=== PATIENT | male | born 1960 | race Two or more races ===

== ENCOUNTER 2017-09-17 08:05 | Day surgery (SDC) | payer OTHER ==
[2017-09-17] MEDS ORDERED: LIDOCAINE 0.5% HCL 50 ML VIAL ONE (08:25)
[2017-09-17] MEDS ORDERED: EPINEPHRINE (1:1000) MDV 30 MG/30ML VIAL ONE (08:25)
[2017-09-17] MEDS ORDERED: CEFAZOLIN SODIUM/DEXTROSE,ISO 50 ML IV ONE (09:13)
[2017-09-17] MEDS ORDERED: MIDAZOLAM HCL 2 MG/2ML VIAL ONE (09:51)
[2017-09-17] MEDS ORDERED: FENTANYL PF 250MCG/5ML AMPUL ONE (09:51)
[2017-09-17] MEDS ORDERED: ROCURONIUM BROMIDE 50 MG/5 ML ONE (09:58)
[2017-09-17] MEDS ORDERED: HYDROMORPHONE INJ 2 MG/ML DISP.SYRIN ONE (11:18)
== END 2017-09-17 13:05 | disposition home or self-care (01) ==
LOC: DS 08:05
PROVIDERS: ATTEND Specialist
DX: M75.112 Incomplete rotator cuff tear or rupture of left shoulder, not specified as traumatic (principal); M19.012 Primary osteoarthritis, left shoulder; M75.52 Bursitis of left shoulder; M65.812 Other synovitis and tenosynovitis, left shoulder; M75.42 Impingement syndrome of left shoulder; J44.9 Chronic obstructive pulmonary disease, unspecified; F17.200 Nicotine dependence, unspecified, uncomplicated; I50.9 Heart failure, unspecified; I11.0 Hypertensive heart disease with heart failure; Z98.890 Other specified postprocedural states; Z79.899 Other long term (current) drug therapy
CPT/HCPCS: 23412; 29824; 29826; 29828; 88304; 88311; A4217; A4565; A6253; J0171; J0690; J1100; J1170; J2250; J2704; J2710; J3010; J3490 ×2; Z7610